=== PATIENT | female | born 1965 | race Caucasian/White ===

== ENCOUNTER 2019-02-15 07:53 | Outpatient (CLI) | payer OTHER ==
--- NOTE | 2019-02-15 08:49 | ULT ---
Pelvic sonogram transabdominal and transvaginal imaging with duplex evaluation HISTORY: Pelvic pain. FINDINGS: Urinary bladder is incompletely distended. The uterus and left ovary are surgically absent. No free fluid. Right ovary measures up to 3.1 cm. Normal appearance with good color and spectral Doppler flow. IMPRESSION: Status post hysterectomy and left nephrectomy. Normal sonographic appearance of the right ovary. No abnormalities are demonstrated.
--- NOTE | 2019-02-15 10:20 | BD ---
DEXA BONE DENSITY STUDY: HISTORY: Postsurgical menopause. FINDINGS: Lumbar Spine: BMD (g/cm2) L1 1.014 T-Score: +0.2 L2 1.151 T-Score: +1.1 L3 1.093 T-Score: +0.1 L4 1.084 T-Score: +0.2 L1-L4 1.090 T-Score: +0.4 Within normal limits with no increased risk for fracture. Femoral Neck: 0.785 T-Score: -0.6 Total Femur: 1.077 T-Score: +1.1 Within normal limits with no increased risk for fractures. FRAX score not reported because all T-scores at or above -1.0. POS: OFF
== END 2019-02-15 07:54 | disposition home or self-care (01) ==
LOC: BICULT 07:53
PROVIDERS: ATTEND Family Medicine
DX: Z13.820 Encounter for screening for osteoporosis (principal); R10.2 Pelvic and perineal pain; E89.40 Asymptomatic postprocedural ovarian failure; Z90.710 Acquired absence of both cervix and uterus; Z90.5 Acquired absence of kidney
CPT/HCPCS: 76856; 77063; 77067; 77080

== ENCOUNTER 2019-04-18 08:03 | Day surgery (SDC) | payer OTHER ==
[2019-04-17 10:42] VITALS: BMI 32.1
[2019-04-18] MEDS ORDERED: Lidocaine 1% PF 5 ML VIAL ONE (10:41)
[2019-04-18] MEDS ORDERED: PROPOFOL 200 MG/20 ML VIAL ONE (10:41)
--- NOTE | 2019-04-18 16:05 | OP ---
DATE OF PROCEDURE: 04/18/2019 PROCEDURES PERFORMED: 1. Esophagogastroduodenoscopy with biopsy. 2. Esophageal dilation with balloon less than 30 mm. 3. Colonoscopy (diagnostic). INDICATIONS FOR PROCEDURE: Dysphagia, left lower quadrant abdominal pain, hematochezia, and personal history of colon polyps. DESCRIPTION OF PROCEDURE: After the risks and benefits of the procedures were explained to the patient including risks of bleeding, infection, perforation, reactions to anesthesia, aspiration, and/or pain, informed consent was obtained. The patient was then taken to the endoscopy suite, where deep sedation was administered via propofol and anesthesia support. Once adequate sedation was achieved, the standard gastroscope was introduced into the mouth with intubation of the esophagus, stomach, and the proximal small intestines with the findings listed below. Upon conclusion of this phase of the procedure, all equipment was removed from the patient and the bed was rotated 180 degrees in anticipation of the colonoscopy. A digital rectal examination was then performed followed by introduction of the standard colonoscope, which was then advanced to the terminal ileum with some difficulty due to redundancy of the colon, requiring manual abdominal pressure to facilitate passage of the scope. The quality of the prep was good. The patient tolerated the procedure well with no immediate perioperative complications. Upon conclusion of the procedure, all equipment was removed from the patient and she was transferred to Day Stay in satisfactory condition. EGD FINDINGS: Esophagus: Normal-appearing mucosa was seen in the proximal, mid, and distal esophagus. There may have been some mild tapering of the esophagus at the gastroesophageal junction, but was easily traversed with the standard gastroscope. Otherwise, there was no evidence of erosions, ulcerations, mass lesions, or active/recent bleeding before. Given the lack of overt findings for possible stricture or explanation of dysphagia, biopsies were taken from both the proximal and distal esophagus for evaluation of esophagitis. A CRE TTS esophageal balloon was then advanced through the scope and inflated to 18 mm at the gastroesophageal junction in an attempt to dilate this region. Inspection of the gastroesophageal junction after dilation revealed no difference. Stomach: Normal-appearing mucosa was seen in the gastric cardia, fundus, body, greater curvature, antrum, and incisura. There was no evidence of erosions, ulcerations, mass lesions, or active/recent bleeding. Duodenum: Normal-appearing mucosa was seen in both the duodenal bulb and second portion of the duodenum. There was no evidence of erosions, ulcerations, mass lesions, or active/recent bleeding. IMPRESSION: 1. Mild tapering of the distal esophagus without overt stricture status post dilation to 18 mm with no significant change. 2. Otherwise normal upper endoscopy. COLONOSCOPY FINDINGS: Digital rectal exam: Large external erythematous hemorrhoids were seen on external examination with one particular hemorrhoid with what appeared to be an adherent clot, but no evidence of active bleeding. A small perianal skin tags were also noted on rectal exam with normal sphincter tone. Colon findings: Evidence of prior surgery was seen in the proximal colon at approximately 90 cm past the anal verge with an end-to-side ileal colonic anastomosis. The anastomosis site appeared healthy with no evidence of mucosal breakdown nor was there evidence of any retained cristiano or suture material. Normal-appearing mucosa was then seen in the distal ascending colon, transverse colon, descending colon, sigmoid colon, and rectum. Small internal hemorrhoids were seen on rectal retroflexion. IMPRESSION: 1. Evidence of prior surgery with an end-to-side ileocolonic anastomosis that is healthy in appearance in the right colon. 2. Small internal hemorrhoids. 3. Large external hemorrhoids with evidence of recent bleeding. 4. No polyps or cancers were seen during this examination. RECOMMENDATIONS: 1. We will follow up on the biopsy results with further management dictated by the pathology report. 2. Would continue a higher fiber diet given the presence of internal and external hemorrhoids. 3. Would continue Linzess 290 mcg daily to facilitate having a bowel movement and avoid constipation, which can exacerbate hemorrhoids. 4. Would repeat the colonoscopy in 5 to 10 years given her personal history of prior colonic polyps. 5. Would have the patient follow up in the [facility] in 3 to 4 weeks for re-evaluation of her constipation and dysphagia at that time. Job ID: [id number]
== END 2019-04-18 11:25 | disposition home or self-care (01) ==
LOC: SDC 08:03
PROVIDERS: ATTEND Internal Medicine
PROC: 0DB58ZZ Excision of Esophagus, Via Natural or Artificial Opening Endoscopic (ICD-10-PCS; principal; 2019-04-18)
PROC: 0D758ZZ Dilation of Esophagus, Via Natural or Artificial Opening Endoscopic (ICD-10-PCS; principal; 2019-04-18)
PROC: 0DJD8ZZ Inspection of Lower Intestinal Tract, Via Natural or Artificial Opening Endoscopic (ICD-10-PCS; principal; 2019-04-18)
DX: K64.4 Residual hemorrhoidal skin tags (principal); K64.8 Other hemorrhoids; K59.09 Other constipation; K21.9 Gastro-esophageal reflux disease without esophagitis; E78.00 Pure hypercholesterolemia, unspecified; F32.9 Major depressive disorder, single episode, unspecified; M19.90 Unspecified osteoarthritis, unspecified site; Z86.010 Personal history of colon polyps; Z79.899 Other long term (current) drug therapy; Z88.0 Allergy status to penicillin; Z88.1 Allergy status to other antibiotic agents; Z88.8 Allergy status to other drugs, medicaments and biological substances; Z91.018 Allergy to other foods; Z91.030 Bee allergy status; Z91.040 Latex allergy status; Z91.048 Other nonmedicinal substance allergy status
CPT/HCPCS: 88305; 88312; 88313; J2001; J2704

== ENCOUNTER 2020-05-30 10:10 | Outpatient (CLI) | payer OTHER | END 2020-05-30 10:11 | disposition home or self-care (01) | LOC: BICRAD 10:10 | PROVIDERS: ATTEND Internal Medicine Critical Care Medicine | DX: Z12.31 Encounter for screening mammogram for malignant neoplasm of breast (principal); R06.00 Dyspnea, unspecified; Z85.43 Personal history of malignant neoplasm of ovary; Z85.41 Personal history of malignant neoplasm of cervix uteri | CPT/HCPCS: 71046; 77063; 77067 ==

== ENCOUNTER 2021-01-09 11:33 | Outpatient (CLI) | payer OTHER ==
[2021-01-09 23:11] LABS: SARS-CoV-2 PCR by NAA Not Detected (NotDetected)
== END 2021-01-09 11:34 | disposition home or self-care (01) ==
LOC: LABBT 11:33
PROVIDERS: ATTEND Internal Medicine Critical Care Medicine
DX: Z20.822 Contact with and (suspected) exposure to COVID-19 (principal)
CPT/HCPCS: U0003; U0005

== ENCOUNTER 2021-12-29 12:56 | Emergency (ER) | payer OTHER ==
[2021-12-29 13:47] LABS: #Basophils 0.1 thou/uL (0.0-0.2); #Eosinphils 0.1 thou/uL (0.0-0.7); #Lymphocytes 1.4 thou/uL (1.20-3.40); #Monocytes 0.8 thou/uL (0.11-0.59); #Neutrophils 5.5 thou/uL (1.40-6.50); %Basophils 0.8 % (0.0-1.0); %Eosinophils 1.9 % (0.0-10.0); %Lymphocytes 17.4 % (21.0-51.0); %Monocytes 9.7 % (0.0-10.0); %Neutrophils 70.1 % (42.0-75.0); Mean Corpuscular HGB CONC 33.8 g/dL (32.0-36.0); Mean Corpuscular Hemoglobin 30.1 pg (27.0-31.0); Mean Corpuscular Volume 89.2 fL (78.0-98.0); Mean Platelet Volume 8.4 fL (7.4-10.4); Platelet Count 201 thou/uL (130-400); RBC Distribution Width 12.1 % (11.5-14.5); White Blood Cell (WBC) Count 7.9 thou/uL (4.8-10.8)
[2021-12-29 14:06] LABS: ALT (SGPT) 7 U/L (8-55); AST (SGOT) 13 U/L (5-34); Albumin 4.3 g/dL (3.5-5.0); Alkaline Phosphatase 104 U/L (40-110); Anion Gap 13 mmol/L (10-20); BUN (Urea Nitrogen) 14 mg/dL (9.8-20.1); Bilirubin, Total 0.7 mg/dL (0.2-1.2); Calc. Creatinine Clearance 0 mL/min (70-130); Calcium 9.3 mg/dL (7.8-10.44); Carbon Dioxide 24 mmol/L (22-29); Chloride 108 mmol/L (98-107); Estimated GFR 63; Globulin 3.1 g/dL (2.4-3.5); Glucose 98 mg/dL (70-105); Potassium 4.2 mmol/L (3.5-5.1); Protein, Total 7.4 g/dL (6.0-8.3); Sodium 141 mmol/L (136-145)
== END 2021-12-29 14:47 | disposition home or self-care (01) ==
LOC: ERS 12:56
DX: R07.89 Other chest pain (principal); R10.13 Epigastric pain; I10 Essential (primary) hypertension; Z79.899 Other long term (current) drug therapy
CPT/HCPCS: 36415; 71045; 76705; 80053; 83880; 84484; 85025; 93005

== ENCOUNTER 2022-07-03 10:58 | Outpatient (CLI) | payer OTHER | END 2022-07-03 10:59 | disposition home or self-care (01) | LOC: BICMAMMO 10:58 | PROVIDERS: ATTEND Specialist | DX: Z12.31 Encounter for screening mammogram for malignant neoplasm of breast (principal); Z85.41 Personal history of malignant neoplasm of cervix uteri; Z91.89 Other specified personal risk factors, not elsewhere classified | CPT/HCPCS: 77063; 77067 ==

== ENCOUNTER 2023-04-09 09:10 | Outpatient (CLI) | payer OTHER | END 2023-04-09 09:11 | disposition home or self-care (01) | LOC: BICULT 09:10 | PROVIDERS: ATTEND Physician Assistant Medical | DX: K21.9 Gastro-esophageal reflux disease without esophagitis (principal); E03.9 Hypothyroidism, unspecified; R10.9 Unspecified abdominal pain; K59.09 Other constipation; K76.0 Fatty (change of) liver, not elsewhere classified | CPT/HCPCS: 76700 ==